=== PATIENT | female | born 1950 | race Caucasian/White ===

== ENCOUNTER → 2022-11-03 | Day surgery (SDC) | payer OTHER | END | disposition home or self-care (01) | LOC: FMAMMOTONE 09:49 | PROVIDERS: ATTEND Family Medicine | PROC: 0HBU3ZX Excision of Left Breast, Percutaneous Approach, Diagnostic (ICD-10-PCS; principal; 2022-11-03) | DX: D05.82 Other specified type of carcinoma in situ of left breast (principal); D24.2 Benign neoplasm of left breast; N64.89 Other specified disorders of breast; N63.20 Unspecified lump in the left breast, unspecified quadrant | CPT/HCPCS: 19081; 19082; 76098-TC-FY; 87899; 88305-TC; 88341-TC; 88342-TC; A4648 ==

== ENCOUNTER → 2022-12-05 | Day surgery (SDC) | payer OTHER ==
[~2022-12-05] MED LIST: DEXAMETHASONE SOD PHOSPHATE 4 MG/1 ML VIAL ONE; LIDOCAINE HCL/PF 2% SDV 5ML VIAL ONE; MIDAZOLAM HCL 2 MG/2 ML SINGLE DOSE VIAL ONE; ONDANSETRON 4 MG/2 ML VIAL ONE; PROPOFOL 40 ML ONE; TRANEXAMIC ACID 1000 MG/10 ML VIAL ONE
== END | disposition home or self-care (01) ==
LOC: JRADUS-SUR 11:46
PROVIDERS: ATTEND Surgery Surgical Oncology
PROC: BH01ZZZ Plain Radiography of Left Breast (ICD-10-PCS; principal; 2022-12-05)
DX: D05.12 Intraductal carcinoma in situ of left breast (principal); D24.2 Benign neoplasm of left breast
CPT/HCPCS: 19281; 19282; A4648

== ENCOUNTER 2022-12-07 03:56 | Day surgery (SDC) | payer OTHER ==
[2022-12-06 08:50] VITALS: BMI 32.1
[2022-12-07] MEDS ORDERED: BUPIVACAINE HCL/PF 0.5% (5MG/ML) 10 ML VIAL IJ ONE ×3 (12:39→12:51)
[2022-12-07] MEDS ORDERED: ONDANSETRON 4 MG/2 ML VIAL IVPUSH PRN (14:02)
[2022-12-07] MEDS ORDERED: LACTATED RINGERS SOLUTION 1,000 ML IV SCH (14:15)
[2022-12-07 14:59] VITALS: RESP 16
[2022-12-07 15:48] VITALS: BP 102/65; PULSE 97; TEMP 97.8
== END 2022-12-07 15:45 | disposition home or self-care (01) ==
LOC: JASU-SURG 03:56
PROVIDERS: ATTEND Surgery Surgical Oncology
PROC: 0HBU0ZZ Excision of Left Breast, Open Approach (ICD-10-PCS; principal; 2022-12-07 12:00)
DX: D05.12 Intraductal carcinoma in situ of left breast (principal)
CPT/HCPCS: 76098-TC-FY; 82962; 88307-TC; 94760

== ENCOUNTER 2023-01-18 04:07 | Day surgery (SDC) | payer OTHER ==
[2023-01-13 15:51] VITALS: BMI 31.1
[2023-01-18] MEDS ORDERED: BUPIVACAINE HCL/PF 0.5% (5MG/ML) 10 ML VIAL ONE (12:26)
[2023-01-18] MEDS ORDERED: MIDAZOLAM HCL 2 MG/2 ML SINGLE DOSE VIAL ONE (13:44)
[2023-01-18] MEDS ORDERED: PROPOFOL 40 ML ONE (13:44)
[2023-01-18] MEDS ORDERED: ceFAZolin SODIUM 1 GM VIAL IVPB ONE (14:15)
[2023-01-18] MEDS ORDERED: ONDANSETRON 4 MG/2 ML VIAL IVPUSH PRN (14:24)
[2023-01-18] MEDS ORDERED: oxyCODONE HCL 5 MG TABLET PO PRN (14:24)
[2023-01-18] MEDS ORDERED: LACTATED RINGERS SOLUTION 1,000 ML IV SCH (14:30)
[2023-01-18 17:28] VITALS: RESP 20; TEMP 97
[2023-01-18 17:30] VITALS: BP 125/67; PULSE 80
== END 2023-01-18 16:40 | disposition home or self-care (01) ==
LOC: JASU-SURG 04:07
PROVIDERS: ATTEND Surgery Surgical Oncology
PROC: 0HBU0ZZ Excision of Left Breast, Open Approach (ICD-10-PCS; principal; 2023-01-18 13:30)
DX: D05.12 Intraductal carcinoma in situ of left breast (principal)
CPT/HCPCS: 82962; 88307-TC; 94760

== ENCOUNTER 2023-03-08 06:00 | Day surgery (SDC) | payer OTHER ==
[2023-03-03 14:33] VITALS: BMI 31.2
[2023-03-08] MEDS ORDERED: PROPOFOL 20 ML ONE (08:02)
[2023-03-08] MEDS ORDERED: ceFAZolin SODIUM 1 GM VIAL IVPB ONE (08:12)
[2023-03-08] MEDS ORDERED: ROCURONIUM BROMIDE 50 MG/5 ML SYRINGE ONE (08:15)
[2023-03-08] MEDS ORDERED: MIDAZOLAM HCL 2 MG/2 ML SINGLE DOSE VIAL ONE (09:02)
[2023-03-08] MEDS ORDERED: ONDANSETRON 4 MG/2 ML VIAL ONE (09:14)
[2023-03-08] MEDS ORDERED: KETOROLAC TROMETHAMINE 30 MG/1 ML VIAL ONE (09:14)
[2023-03-08] MEDS ORDERED: DEXAMETHASONE SOD PHOSPHATE 4 MG/1 ML VIAL ONE (09:14)
[2023-03-08] MEDS ORDERED: NEOSTIGMINE METHYLSULFATE 0.5 MG/1 ML - 10 ML MDV ONE (09:14)
[2023-03-08] MEDS ORDERED: GLYCOPYRROLATE 0.2 MG/1 ML VIAL ONE ×2 (09:14)
[2023-03-08] MEDS ORDERED: oxyCODONE HCL 5 MG TABLET PO PRN ×2 (09:53→10:07)
[2023-03-08] MEDS ORDERED: PROMETHAZINE HCL 25 MG/1 ML VIAL IVPB PRN (09:53)
[2023-03-08] MEDS ORDERED: ONDANSETRON 4 MG/2 ML VIAL IVPUSH PRN (09:53)
[2023-03-08] MEDS ORDERED: LACTATED RINGERS SOLUTION 1,000 ML IV SCH (10:00)
[2023-03-08] MEDS ORDERED: ACETAMINOPHEN INJECTION 100 ML IVPB ONE (10:05)
[2023-03-08] MEDS: ACETAMINOPHEN 1000 MG/100 ML BAG IVPB SCH ×2 (10:10→18:13)
[2023-03-08] MEDS: INSULIN SLIDING SCALE (NOVOLOG) 1 VIAL SQ SCH ×3 (11:52→22:22)
[2023-03-08] MEDS ORDERED: SODIUM CHLORIDE 1,000 ML IV SCH (16:15)
[2023-03-08] MEDS ORDERED: IBUPROFEN 600 MG TABLET (FP) PO PRN (18:00)
[2023-03-08] MEDS ORDERED: ROSUVASTATIN CA 20 MG TABLET PO SCH (22:00)
[2023-03-08] MEDS ORDERED: PERPHENAZINE 4 MG TABLET PO SCH (22:00)
[2023-03-09] MEDS: ACETAMINOPHEN 1000 MG/100 ML BAG IVPB SCH ×2 (03:21→09:24)
[2023-03-09] MEDS: INSULIN SLIDING SCALE (NOVOLOG) 1 VIAL SQ SCH ×2 (06:12→11:40)
[2023-03-09] MEDS ORDERED: amLODIPine BESYLATE 10 MG TABLET (FP) PO SCH (10:00)
[2023-03-09] MEDS ORDERED: LOSARTAN POTASSIUM 25 MG TABLET PO SCH (10:00)
[2023-03-09] MEDS ORDERED: PANTOPRAZOLE 40 MG TABLET PO SCH (10:00)
[2023-03-09 10:48] VITALS: BP 117/62; PULSE 98; RESP 20; TEMP 99.3
== END 2023-03-09 12:48 | disposition home or self-care (01) ==
LOC: JASUSAT 06:00 → EDSTATUS 08:00 → J6S 12:20 → JASUSAT 03-09 12:48
PROVIDERS: ATTEND Surgery Surgical Oncology
PROC: 0HTU0ZZ Resection of Left Breast, Open Approach (ICD-10-PCS; principal; 2023-03-08 08:00)
DX: C50.912 Malignant neoplasm of unspecified site of left female breast (principal)
CPT/HCPCS: 82962; 94010; 94760